=== PATIENT | male | born 1970 | race Caucasian/White ===

== ENCOUNTER 2017-04-26 10:38 | Emergency (ER) | payer BC ==
[~2017-04-26] VITALS: Ht 167.6 cm; Wt 84.0 kg
[2017-04-26 10:43] VITALS: BP 169/83; PULSE 66; RESP 16; TEMP 98.3; O2SAT 98
--- NOTE | 2017-04-26 10:49 | PD ---
HPI Chief Complaint: Skin Problem Time Seen by Provider: 10:47 Travel History International Travel<30 days: No Contact w/Intl Traveler<30days: No Traveled to known affect area: No History of Present Illness HPI 46-year-old male presents to emergency department with pain, erythema , and swelling to the right next finger which is gotten progressively worse since small cut to the dorsal surface on Sunday of this week. It is now . Patient was working with some Tile that caused a small laceration just distal to the MIP joint. Patient states it didn't swell up until yesterday and has gotten worse. He denies fever, chills, but is unable to bend the finger secondary to swelling. He denies numbness or tingling. No significant pain. Patient is unsure of his last tetanus shot. He denies is a foreign body but can't be sure. He has no known drug allergies. PFSH Social History Alcohol Use: Yes Tobacco Use: No Substance Use: No Allergies-Medications (Allergen,Severity, Reaction): Coded Allergies: No Known Allergies (Unverified , 04/26/17) Reported Meds & Prescriptions Reported Meds & Active Scripts Active Keflex (Cephalexin) 500 Mg Cap 500 Mg PO Q8H 7 Days Bactrim DS (Sulfamethoxazole-Trimethoprim) 800-160 Mg Tab 1 Tab PO BID Reported Lovastatin 20 Mg Tab 20 Mg PO BID Review of Systems Except as stated in HPI: all other systems reviewed are Neg General / Constitutional: No: Fever Eyes: No: Visual changes HENT: No: Headaches Cardiovascular: No: Chest Pain or Discomfort Respiratory: No: Shortness of Breath Gastrointestinal: No: Abdominal Pain Genitourinary: No: Dysuria Musculoskeletal: No: Pain Skin: No Rash Neurologic: No: Weakness Psychiatric: No: Depression Endocrine: No: Polydipsia Hematologic/Lymphatic: No: Easy Bruising Physical Exam Narrative GENERAL: Patient appears in no acute distress. SKIN: Warm and dry. Normal color. Normal turgor. Patient has swelling, erythema, and mild warmth to the right index finger with redness extending up past the proximal interphalangeal joint. HEAD: Atraumatic. Normocephalic. EYES: Pupils equal and round. No scleral icterus. No injection or drainage. ENT: No nasal bleeding or discharge. Mucous membranes pink and moist. NECK: Trachea midline. No JVD. CARDIOVASCULAR: Regular rate and rhythm. RESPIRATORY: No accessory muscle use. Clear to auscultation. Breath sounds equal bilaterally. GASTROINTESTINAL: Abdomen soft, non-tender, nondistended. Hepatic and splenic margins not palpable. MUSCULOSKELETAL: Extremities without clubbing, cyanosis, or edema. No obvious deformities. The patient has decreased range of motion of the right index finger secondary to swelling. NEUROLOGICAL: Awake and alert. No obvious cranial nerve deficits. Motor grossly within normal limits. Five out of 5 muscle strength in the arms and legs. Normal speech. PSYCHIATRIC: Appropriate mood and affect; insight and judgment normal. Data Data Last Documented VS Vital Signs Date Time Temp Pulse Resp B/P (MAP) Pulse Ox O2 Delivery O2 Flow Rate FiO2 04/26/17 10:43 98.3 66 16 169/83 (111) 98 Orders Orders Finger (Hyd3uol) (04/26/17 10:49) Tetanus/Diphtheria Tox Adult (Tetanus/Di (04/26/17 11:00) Cephalexin (Keflex) (04/26/17 11:00) Sulfamet-Trimeth Ds 800-160 Mg (Bactrim (04/26/17 11:00) Lidocai-Epi 1%-1:100,000 Inj (Xylocaine- (04/26/17 11:45) MDM Medical Decision Making Medical Screen Exam Complete: Yes Emergency Medical Condition: Yes Differential Diagnosis Superficial laceration. Cellulitis. Possible foreign body. Abscess. Narrative Course X-ray of the right index finger is ordered to rule out foreign body. Patient is given Keflex 500 mg by mouth now. Patient is given Bactrim DS by mouth now. Tetanus is given 0.5 mg IM. X-ray shows small 4 mm irregular shape foreign body consistent with patient's history. I&D of this area is performed. See procedure note. Patient will be continued on Keflex 500 mg 3 times a day 7 days. Patient also continued on Bactrim DS twice a day 7 days. Patient is given ibuprofen 800 mg 3 times a day #30. Wound instructions are reviewed. Patient to follow up if symptoms do not continue to improve or worsen as needed. Procedures Procedure Narrative After the risks and benefits were discussed the following procedure was performed: INCISION AND REMOVAL OF FOREIGN BODY: The area was prepped and was sterilely draped. A digital block of 1 % Xylocaine with epinephrine with a total number 2.5 mL was used to anesthetize the area. The area was properly anesthetized. A number 11 scalpel was used to make a 0.5-cm incision across the area of the abscess. Foreign body removed The wound was irrigated with normal saline. Sterile dressing applied. Patient tolerated procedure very well. Diagnosis Primary Impression: Superficial foreign body of left index finger with infection Referrals: Primary Care Physician Patient Instructions: Cellulitis (ED), General Instructions, Soft Tissue Foreign Body (ED) Additional Instructions: Patient will be continued on Keflex 500 mg 3 times a day 7 days. Patient also continued on Bactrim DS twice a day 7 days. Patient is given ibuprofen 800 mg 3 times a day #30. Wound instructions are reviewed. Patient to follow up if symptoms do not continue to improve or worsen as needed. Med/Other Pt SpecificInfo: Prescription(s) given, Wound Care Scripts Cephalexin (Keflex) 500 Mg Cap 500 MG PO Q8H for Infection for 7 Days, #21 CAP 0 Refills Prov: Gonzalo Martin MD 04/26/17 Sulfamethoxazole-Trimethoprim (Bactrim DS) 800-160 Mg Tab 1 TAB PO BID for Infection, #14 TAB 0 Refills Prov: Gonzalo Martin MD 04/26/17 Disposition: 01 DISCHARGE HOME Condition: Stable Trino Daugherty Apr 26, 2017 10:49
[2017-04-26] MEDS ORDERED: LOVA20TA PO (10:50)
[2017-04-26] MEDS ORDERED: TETANUS/DIPHTHERIA TOXOID ADULT 0.5 ML VIAL IM ONE (11:00)
[2017-04-26] MEDS ORDERED: CEPHALEXIN MONOHYDRATE 500 MG CAP PO ONE (11:00)
[2017-04-26] MEDS ORDERED: SULFAMETHOXAZOLE-TRIMETHOPRIM DS 800-160 MG TAB PO ONE (11:00)
--- NOTE | 2017-04-26 11:26 | RADRPT ---
EXAM DATE/TIME: 04/26/2017 10:56 [facility] COMPARISON: No previous studies available for comparison. INDICATIONS : Right second digit swelling & pain post small healed laceration from tip to posterior aspect of right second MIP joint 2 days ago. Possible foreign body. MEDICAL HISTORY : Hypercholesterolemia. SURGICAL HISTORY : None. ENCOUNTER: Initial ACUITY: 2 days PAIN SCORE: 8/10 LOCATION: Right hand second digit FINDINGS: 3 views of the right hand second digit demonstrate soft tissue swelling diffusely of the second digit . There is a 2 mm triangular density in the soft tissues posterior and superficial to the proximal in terphalangeal joint. Given the density this could present an osseous fragment but no donor site is id entified. There is no fracture or dislocation. Remaining right hand structures demonstrate no acute f inding. CONCLUSION: Diffuse soft tissue swelling of the second digit with 2 mm triangular density/foreign body in the pos terior soft tissues of the mid digit superficial to the PIP joint. Kartik Monzon MD on April 26, 2017 at 11:21 Board Certified Radiologist. This report was verified electronically.
[2017-04-26] MEDS ORDERED: LIDOCAINE 1%/EPINEPHrine 1:100,000 SOLN 20 ML VIAL INFIL ONE (11:45)
[2017-04-26] MEDS ORDERED: CEPH-460 PO (12:08)
[2017-04-26] MEDS ORDERED: BACT800T5 PO (12:08)
== END 2017-04-26 12:19 | disposition home or self-care (01) ==
LOC: PHEFT 10:38
DX: S60.450A Superficial foreign body of right index finger, initial encounter (principal); L08.9 Local infection of the skin and subcutaneous tissue, unspecified; X58.XXXA Exposure to other specified factors, initial encounter; Y93.89 Activity, other specified; Z23 Encounter for immunization
CPT/HCPCS: 26080; 73140; 90471; 90714